=== PATIENT | male | born 1955 | race Caucasian/White ===

== ENCOUNTER 2020-01-09 17:42 | Emergency (ER) | payer BC ==
[~2020-01-09] VITALS: Ht 167.6 cm; Wt 81.7 kg
[~2020-01-09 17:42] MED LIST: AMIT25 PO; Cetirizine HCl10 MG PO; Flonase 0.05% N16 GM; GABA100 PO; HYDACE10B PO; KETO5OP BOTHEYES; LORA1 PO; NAPR500ERA PO; PIRO20 PO; VENL75ER PO; ZOLP5 PO
[2020-01-09 18:12] LABS: BASOPHILS ABSOLUTE AUTO 0.03 K/mm3 (0.00-0.23); BASOPHILS PERCENT AUTO 0 % (0-2); EOSINOPHILS ABSOLUTE AUTO 0.23 K/mm3 (0.00-0.68); EOSINOPHILS PERCENT AUTO 3 % (0-6); Hematocrit 45.6 % (37.0-53.0); Hemoglobin 14.7 g/dL (13.5-17.5); IMMATURE GRAN ABSOLUTE AUTO 0.02 K/mm3 (0.00-0.10); IMMATURE GRAN PERCENT AUTO 0 % (0-1); LYMPHOCYTES ABSOLUTE AUTO 1.43 K/mm3 (0.84-5.20); LYMPHOCYTES PERCENT AUTO 19 % (21-46); MONOCYTES ABSOLUTE AUTO 0.71 K/mm3 (0.16-1.47); MONOCYTES PERCENT AUTO 9 % (4-13); Mean Corpuscular HGB 29.2 pg (26.0-34.0); Mean Corpuscular HGB Conc 32.2 g/dL (31.5-36.5); Mean Corpuscular Volume 91 fL (80-100); Mean Platelet Volume 10.6 fL (9.1-12.4); NEUTROPHILS ABSOLUTE AUTO 5.23 K/mm3 (1.96-9.15); NEUTROPHILS PERCENT AUTO 68 % (41-73); Platelet Count 223 K/mm3 (150-400); RDW Coefficient Variation 13.1 % (11.7-14.2); Red Blood Cell Count 5.03 M/mm3 (4.30-5.90); White Blood Cell Count 7.65 K/mm3 (4.00-11.30)
[2020-01-09 18:30] LABS: Alanine Aminotransfer (ALT/SGP 28 U/L (12-78); Albumin, Blood 3.3 g/dL (3.4-5.0); Albumin/Globulin Ratio 1.1 (0.8-1.8); Alk Phos 78 U/L (50-136); Anion Gap 1 mmol/L (6-16); Aspartate Aminotrans (AST/SGOT 20 U/L (12-37); Bilirubin, Total 0.3 mg/dL (0.1-1.0); Blood Urea Nitrogen 12 mg/dL (8-24); Bun/Creatinine Ratio 12.6 (12.0-20.0); CO2, Blood 31 mmol/L (21-32); Calcium, Blood 8.7 mg/dL (8.5-10.1); Chloride, Blood 107 mmol/L (98-108); Creatinine, Blood 0.95 mg/dL (0.60-1.20); Globulin, Blood 3.1 g/dL (2.2-4.0); Glomerular Filtration Rate >60 (60-); Glucose, Blood 94 mg/dL (70-99); Potassium, Blood 4.3 mmol/L (3.5-5.5); Sodium, Blood 139 mmol/L (136-145); Total Protein, Blood 6.4 g/dL (6.4-8.2)
== END 2020-01-09 20:19 | disposition home or self-care (01) ==
LOC: ER 17:42
PROVIDERS: Emergency Medicine
DX: R79.9 Abnormal finding of blood chemistry, unspecified (principal); I10 Essential (primary) hypertension; K21.9 Gastro-esophageal reflux disease without esophagitis; Z79.899 Other long term (current) drug therapy; Z87.891 Personal history of nicotine dependence
CPT/HCPCS: 36415; 80053; 85025; 93005; 93010; 99284-25

== ENCOUNTER 2023-03-28 09:42 | Day surgery (SDC) | payer MEDICARE, BC ==
[~2023-03-28] VITALS: Ht 167.6 cm; Wt 87.5 kg
--- NOTE | 2023-03-28 10:41 | NUR ---
03/28/23 1041 iLlibeth Shen AT 1040 PLEDGET AT 1041
[2023-03-28 12:21] VITALS: BP 123/78
--- NOTE | 2023-03-28 12:42 | NUR ---
03/28/23 1242 Jacky Moreno IV REMOVED INTACT. SITE WNL.
== END 2023-03-28 12:30 | disposition home or self-care (01) ==
LOC: ORSCSDS 09:42
PROVIDERS: Student in an Organized Health Care Education/Training Program
PROC: 08RK3JZ Replacement of Left Lens with Synthetic Substitute, Percutaneous Approach (ICD-10-PCS; principal; 2023-03-28 11:00)
DX: H25.12 Age-related nuclear cataract, left eye (principal); Z96.1 Presence of intraocular lens; H52.202 Unspecified astigmatism, left eye; H21.81 Floppy iris syndrome; F17.220 Nicotine dependence, chewing tobacco, uncomplicated; F41.9 Anxiety disorder, unspecified; Z79.899 Other long term (current) drug therapy
CPT/HCPCS: J2250; J3010; J7040; V2632

== ENCOUNTER → 2023-04-08 | Outpatient (CLI) | payer MEDICARE, BC ==
[2023-04-08 13:01] LABS: BASOPHILS ABSOLUTE AUTO 0.04 K/mm3 (0.00-0.23); BASOPHILS PERCENT AUTO 0 % (0-2); EOSINOPHILS ABSOLUTE AUTO 0.01 K/mm3 (0.00-0.68); EOSINOPHILS PERCENT AUTO 0 % (0-6); Hematocrit 53.4 % (37.0-53.0); IMMATURE GRAN ABSOLUTE AUTO 0.08 K/mm3 (0.00-0.10); IMMATURE GRAN PERCENT AUTO 1 % (0-1); LYMPHOCYTES ABSOLUTE AUTO 0.59 K/mm3 (0.84-5.20); LYMPHOCYTES PERCENT AUTO 5 % (21-46); MONOCYTES ABSOLUTE AUTO 1.21 K/mm3 (0.16-1.47); MONOCYTES PERCENT AUTO 10 % (4-13); Mean Corpuscular HGB 31.1 pg (26.0-34.0); Mean Corpuscular HGB Conc 33.7 g/dL (31.5-36.5); Mean Corpuscular Volume 92 fL (80-100); Mean Platelet Volume 10.6 fL (9.1-12.4); NEUTROPHILS ABSOLUTE AUTO 9.75 K/mm3 (1.96-9.15); NEUTROPHILS PERCENT AUTO 83 % (41-73); Platelet Count 179 K/mm3 (150-400); RDW Coefficient Variation 13.2 % (11.7-14.2); RDW Standard Deviation 44.8 fL (35.1-46.3); Red Blood Cell Count 5.78 M/mm3 (4.30-5.90); White Blood Cell Count 11.68 K/mm3 (4.00-11.30)
[2023-04-08 13:09] LABS: Albumin, Blood 2.6 g/dL (3.4-5.0); Albumin/Globulin Ratio 0.7 (0.8-1.8); Bilirubin, Total 0.6 mg/dL (0.1-1.0); Bun/Creatinine Ratio 12.8 (12.0-20.0); Calcium, Blood 8.3 mg/dL (8.5-10.1); Creatinine, Blood 1.41 mg/dL (0.60-1.20); Globulin, Blood 3.5 g/dL (2.2-4.0); Total Protein, Blood 6.1 g/dL (6.4-8.2)
== END | disposition home or self-care (01) ==
LOC: LAB SHORT 12:54 → LAB 12:54
PROVIDERS: Physician Assistant
DX: R06.00 Dyspnea, unspecified (principal)
CPT/HCPCS: 80053; 84484; 85025

== ENCOUNTER 2023-04-18 13:37 | Inpatient (IN) | payer OTHER, MEDICARE, BC ==
[~2023-04-18] VITALS: Ht 167.6 cm; Wt 78.8 kg
[2023-04-18 14:48] LABS: BASOPHILS ABSOLUTE AUTO 0.03 K/mm3 (0.00-0.23); BASOPHILS PERCENT AUTO 0 % (0-2); EOSINOPHILS ABSOLUTE AUTO 0.03 K/mm3 (0.00-0.68); EOSINOPHILS PERCENT AUTO 0 % (0-6); Hematocrit 41.8 % (37.0-53.0); Hemoglobin 14.2 g/dL (13.5-17.5); IMMATURE GRAN ABSOLUTE AUTO 0.23 K/mm3 (0.00-0.10); IMMATURE GRAN PERCENT AUTO 2 % (0-1); LYMPHOCYTES ABSOLUTE AUTO 0.36 K/mm3 (0.84-5.20); LYMPHOCYTES PERCENT AUTO 2 % (21-46); MONOCYTES ABSOLUTE AUTO 0.57 K/mm3 (0.16-1.47); MONOCYTES PERCENT AUTO 4 % (4-13); Mean Corpuscular HGB 30.5 pg (26.0-34.0); Mean Corpuscular Volume 90 fL (80-100); Mean Platelet Volume 9.9 fL (9.1-12.4); NEUTROPHILS ABSOLUTE AUTO 13.49 K/mm3 (1.96-9.15); NEUTROPHILS PERCENT AUTO 92 % (41-73); Platelet Count 200 K/mm3 (150-400); RDW Coefficient Variation 13.5 % (11.7-14.2); RDW Standard Deviation 44.8 fL (35.1-46.3); Red Blood Cell Count 4.65 M/mm3 (4.30-5.90); White Blood Cell Count 14.71 K/mm3 (4.00-11.30)
[2023-04-18 15:09] LABS: Albumin/Globulin Ratio 0.6 (0.8-1.8); Bilirubin, Total 0.8 mg/dL (0.1-1.0); Bun/Creatinine Ratio 16.4 (12.0-20.0); Creatinine, Blood 0.98 mg/dL (0.60-1.20); Globulin, Blood 3.4 g/dL (2.2-4.0); Potassium, Blood 4.2 mmol/L (3.5-5.5); Total Protein, Blood 5.4 g/dL (6.4-8.2)
[2023-04-18 15:25] LABS: Influenza A, PCR NEGATIVE (NEGATIVE); Influenza B, PCR NEGATIVE (NEGATIVE); Resp Syncytial Virus, PCR NEGATIVE (NEGATIVE)
[2023-04-18 15:26] LABS: SARS-Cov-2 (COVID-19) PCR, MMC POSITIVE (NEGATIVE)
[2023-04-18 15:45] LABS: PCO2 Arterial 33.8 mmHg (35-45); PO2 Arterial 68.5 mmHg (80-100); pH Blood Arterial 7.49 (7.35-7.45)
[2023-04-18 18:10] VITALS: BP 106/62
[2023-04-18] MEDS ORDERED: ZOLP12.5 PO (18:15)
[2023-04-18] MEDS ORDERED: MYCO250 PO (18:28)
[2023-04-18] MEDS ORDERED: Rituxan10 MG/ML IV (18:30)
[2023-04-18 19:59] VITALS: BP 112/72
--- NOTE | 2023-04-18 20:19 | NUR ---
PT ADMITTED TO ROOM 302 FROM ED AT 1804. PT ON 5L NC, SATS 98% USING EAR PROBE. TURNED O2 DOWN TO 3L, SATS 95%. CONNECTED TO CONT PULSE IN ROOM. SET UP IVF NS AT 50. ORIENTED TO ROOM AND SAFETY. PT IS VERY DYSPNIC WITH MIN ACTIVITY, EVEN MOVING SELF UP IN THE BED VERY EXHAUSTING. OBTAINED HX AND DID PHYSICAL ASSESSMENT. WILL REPORT TO JASWINDER APARICIO.
[2023-04-18] MEDS ORDERED: VITAMIN D5000 UNIT PO (20:43)
[2023-04-18] MEDS ORDERED: QUERCETIN COMP1 EACH PO (20:45)
[2023-04-18] MEDS ORDERED: OMEP20ER PO (20:46)
--- NOTE | 2023-04-18 20:47 | NUR ---
PT AND FAMILY REQUESTING TO HAVE REMDESIVIR DC'D- DON'T WISH TO TAKE THIS MED
[2023-04-19 02:58] VITALS: BP 94/80
[2023-04-19 04:55] LABS: BASOPHILS ABSOLUTE AUTO 0.02 K/mm3 (0.00-0.23); BASOPHILS PERCENT AUTO 0 % (0-2); EOSINOPHILS PERCENT AUTO 0 % (0-6); Hematocrit 38.4 % (37.0-53.0); Hemoglobin 12.7 g/dL (13.5-17.5); IMMATURE GRAN ABSOLUTE AUTO 0.12 K/mm3 (0.00-0.10); IMMATURE GRAN PERCENT AUTO 1 % (0-1); LYMPHOCYTES ABSOLUTE AUTO 0.22 K/mm3 (0.84-5.20); LYMPHOCYTES PERCENT AUTO 2 % (21-46); MONOCYTES ABSOLUTE AUTO 0.34 K/mm3 (0.16-1.47); MONOCYTES PERCENT AUTO 3 % (4-13); Mean Corpuscular HGB Conc 33.1 g/dL (31.5-36.5); Mean Corpuscular Volume 91 fL (80-100); NEUTROPHILS PERCENT AUTO 94 % (41-73); Platelet Count 183 K/mm3 (150-400); RDW Coefficient Variation 13.4 % (11.7-14.2); RDW Standard Deviation 45.1 fL (35.1-46.3); Red Blood Cell Count 4.24 M/mm3 (4.30-5.90)
[2023-04-19 05:16] LABS: Bun/Creatinine Ratio 17.3 (12.0-20.0); Calcium, Blood 7.6 mg/dL (8.5-10.1); Creatinine, Blood 0.87 mg/dL (0.60-1.20); Potassium, Blood 4.5 mmol/L (3.5-5.5)
--- NOTE | 2023-04-19 06:11 | NUR ---
SHIFT SUMMARY NO C/O PAIN. PT ON 5L NC AND CONTINUOUS SPO2, SOB WITH VERY MINIMAL EXERTION. PER SHIFT REPORT PT AND SIGNIFICANT OTHER REQUESTING HIS OMEPRAZOLE BE ORDERED AND THAT REMDESEVIR IS DISCONTINUED HE WILL NOT TAKE IT. REMDESEVIR IS NOT ON THE OCT, NOTIFIED DON HUYNH TO OBTAIN OMEPRAZOLE ORDER. PT VERY WEAK. PRN AMBIEN GIVEN PER PT REQUEST. FIRE SAFETY REVIEWED. NO IGNITION SOURCES FOUND.
[2023-04-19 07:33] VITALS: BP 112/72
--- NOTE | 2023-04-19 15:03 | NUR ---
Patient is sitting up in bed and alert. Patient has his SO Wilda bedside. THey tell me about the family unit complications, their careers and their hopes going forward. I normalized his experience, reinforced helpful attitudes and perspectives and provided therapeutic listening and a calming presence. Patient seems encouraged by the conversation and shows signs of an elevated mood.
[2023-04-19 15:34] VITALS: BP 123/69
--- NOTE | 2023-04-19 17:42 | NUR ---
SHIFT SUMMARY- PT IS A/O, PLESANT AND COOPERATIVE. HE IS EATING AND DRINKING WELL. WAS AT BEDSIDE THIS SHIFT. HE IS REFUSING REMDISIVER. AMBULATED TO THE RESTROOM. PT DESATURATES WITH EXERTION. BUT RECOVERS ONCES HE TAKES DEEP BREATHS. HAD A BM THIS SHIFT. HIS BED IS IN THE LOW POSITION AND CALL LIGHT IS WITHIN REACH.
[2023-04-19 20:17] VITALS: BP 134/86
[2023-04-20] VITALS (8 sets, daily range): BP systolic 99–152; BP diastolic 74–88
--- NOTE | 2023-04-20 05:25 | NUR ---
TRANSFER/SUMMARY PT TRANSFERRED FROM [place] [id number] TO [facility] @0500 VIA BED. PT ALERT AND ORIENTED X4, ABLE TO FOLLOW COMMANDS AND MAKE NEEDS KNOWN. BP STABLE, HR SR 70'S, AFEBRILE. PT CURRENTLY ON BIPAP SETTINGS 07/08 100%. RESPIRATIONS 25-30. COVID POSITIVE, ON AIRBORNE ISOLATION. LUNG SOUNDS DIM THROUGHOUT. PULSES STRONG. PT CONT OF URINE, INC OF BOWEL. NS GTT IN R AC. PT REQUEST TO NOT CALL AND MAKE AWARE OF TRANSFER. PT ORIENTED TO ROOM AND CALL LIGHT SYSTEM. BED IN LOW, CALL LIGHT IN REACH, WILL REPORT TO ONCOMING RN.
--- NOTE | 2023-04-20 05:26 | NUR ---
PT TRANSFERED TO PCU @ 0515 THIS SHIFT. PT WAS DESATING ON 7 L O2 SO IT WAS BUMPED UP TO 14 BY RT. PT CONTINUED TO STRUGGLE MAINTAINING SATS SO ORDER FOR BIPAP/CPAP PROTOCOL WAS OBTAINED. PT CONTINUED TO DESAT INTO LOW 80'S/HIGH 70'S WHILE ON BIPAP. RT AND CHARGE NURSE NOTIFIED AND HOSPITALIST WAS CONSULTED. DECISION WAS MADE TO TRANSFER PT TO PCU. REPORT GIVEN TO ALESSANDRA HURD.
[2023-04-20 07:04] LABS: BASOPHILS ABSOLUTE AUTO 0.02 K/mm3 (0.00-0.23); BASOPHILS PERCENT AUTO 0 % (0-2); EOSINOPHILS PERCENT AUTO 0 % (0-6); Hematocrit 38.5 % (37.0-53.0); Hemoglobin 13.1 g/dL (13.5-17.5); IMMATURE GRAN PERCENT AUTO 2 % (0-1); LYMPHOCYTES ABSOLUTE AUTO 0.41 K/mm3 (0.84-5.20); LYMPHOCYTES PERCENT AUTO 2 % (21-46); MONOCYTES ABSOLUTE AUTO 0.94 K/mm3 (0.16-1.47); MONOCYTES PERCENT AUTO 5 % (4-13); Mean Corpuscular HGB 30.5 pg (26.0-34.0); Mean Corpuscular Volume 90 fL (80-100); NEUTROPHILS ABSOLUTE AUTO 15.71 K/mm3 (1.96-9.15); NEUTROPHILS PERCENT AUTO 90 % (41-73); Platelet Count 212 K/mm3 (150-400); RDW Coefficient Variation 13.6 % (11.7-14.2); RDW Standard Deviation 44.6 fL (35.1-46.3); Red Blood Cell Count 4.29 M/mm3 (4.30-5.90); White Blood Cell Count 17.38 K/mm3 (4.00-11.30)
[2023-04-20 07:27] LABS: Albumin, Blood 1.9 g/dL (3.4-5.0); Anion Gap 6 mmol/L (6-16); Blood Urea Nitrogen 16 mg/dL (8-24); Bun/Creatinine Ratio 20.5 (12.0-20.0); CO2, Blood 24 mmol/L (21-32); Calcium, Blood 8.2 mg/dL (8.5-10.1); Chloride, Blood 105 mmol/L (98-108); Creatinine, Blood 0.78 mg/dL (0.60-1.20); Glomerular Filtration Rate 98 (60-); Glucose, Blood 148 mg/dL (70-99); Phosphorus, Blood 3.3 mg/dL (2.5-4.9); Potassium, Blood 4.2 mmol/L (3.5-5.5); Sodium, Blood 135 mmol/L (136-145)
--- NOTE | 2023-04-20 14:12 | NUR ---
AROUND 1200 PT WAS SWITCHED FROM BIPAP TO AIRVO 60L 70%, PT TOLERATED WELL O2 SATURATION ABOVE 95%. RT TITRATED PT TO FIO2 50% WHICH IS PT'S CURRENT SETTING, PT TOLERATING WELL, O2 SATURATION ABOVE 95%.
--- NOTE | 2023-04-20 16:18 | NUR ---
1400 PT WAS UP TO BEDSIDE COMMODE AND HAD SMALL BM, PT TOLERATED WELL. O2 SATURATION WENT DOWN O HIGH 80'S WHILE TALKING, FIO2 TITRATED UP TO 60% PT WAS EXPECTING DAUGHTER SOON AND EXPECTED TO BE TALKING MORE. PT ATE HALF OF A HAMBURGER THAT BROUGHT IN. PT IN BED RESTING WITH AT BEDSIDE. CALL LIGHT WITHIN REACH.
--- NOTE | 2023-04-20 16:40 | NUR ---
FI02 TITRATED BACK DOWN TO 50%, PT TOLERATING WELL, O2 SATURATION ABOVE 93%. PT'S STEPPED OUT OF THE ROOM FOR A BIT. PT RESTING IN BED. CALL LIGHT WITHIN REACH.
--- NOTE | 2023-04-20 17:19 | NUR ---
PT A&OX4, ABLE TO MAKE NEEDS KNOWN. PT STILL ON AIRVO 50% FIO2, OXYGEN SATURATION DROPPED TO 80'S W/EXERTION, HAD TO INCREASE FIO2 PERIODICALLY TO BRING SATS BACK TO 90'S, THEN FI02 TITRATED BACK TO CURRENT SETTINGS. PT DENIES CHEST PAIN/PRESSURE. LUNG SOUNDS CLEAR/DIMINISHED THROUGHOUT. PT AMBULATED TO BEDSIDE COMMODE MULTIPLE TIMES, WITH ASSISTANCE FROM FAMILY MEMBER, TOLERATED FAIRLY. PT HAD SMALL BOWEL MOVEMENT. PT ABLE TO TURN HIMSELF IN BED. PT ATE HALF OF A HAMBURGER THAT HIS BROUGHT IN. PT CONTINUES TO REFUSE REMDESIVIR, IS AWARE. PT RESTING IN BED WITH FAMILY MEMBER AT BEDSIDE. CALL LIGHT WITHIN REACH.
[2023-04-21 04:44] VITALS: BP 133/74
--- NOTE | 2023-04-21 06:40 | NUR ---
SHIFT SUMMARY PATIENT ALERT AND ORIENTED X4, PATIENT WEAK AND CURRENTLY BEDREST. PATIENT MEDICATED PER EMAR FOR PAIN. PATIENT CONTINUES ON HIGH FLOW OXYGEN, CURRENTLY AT 60 LITERS O2 WITH 60% FIO2. VITAL SIGNS STABLE. NO ACUTE ISSUES NOTED OVERNIGHT. WILL CONTINUE TO MONITOR. CALL LIGHT WITHIN REACH.
[2023-04-21 07:56] VITALS: BP 142/81
[2023-04-21 12:13] VITALS: BP 134/73
--- NOTE | 2023-04-21 17:43 | NUR ---
SHIFT SUMMARY PATIENT DESATTED TO HIGH 70'S AT LOWEST WITH EXERTION. ARIVO SETTINGS 60L 50% FIO2 WITH SPO2 IN MID 90'S AT REST. 2 BM THIS SHIFT. MEDICATED WITH TYLENOL PER EMAR X 1 FOR BACK PAIN. OT EVALUATED PATIENT THIS SHIFT, BUT WAS UNABLE TO CONTINUE DUE TO O2 DESATURATION. PATIENT UP IN CHAIR FOR OVER HALF THE SHIFT. NO OTHER CHANGES DURING SHIFT.
[2023-04-21 21:09] VITALS: BP 140/91
[2023-04-22 00:15] VITALS: BP 147/92
[2023-04-22 03:35] VITALS: BP 136/90
[2023-04-22 04:39] LABS: Albumin/Globulin Ratio 0.6 (0.8-1.8); Bilirubin, Total 0.6 mg/dL (0.1-1.0); Bun/Creatinine Ratio 20.5 (12.0-20.0); Calcium, Blood 8.2 mg/dL (8.5-10.1); Creatinine, Blood 0.78 mg/dL (0.60-1.20); Globulin, Blood 3.5 g/dL (2.2-4.0); Potassium, Blood 4.2 mmol/L (3.5-5.5); Total Protein, Blood 5.5 g/dL (6.4-8.2)
--- NOTE | 2023-04-22 06:20 | NUR ---
SHIFT SUMMARY PATIENT ALERT AND ORIENTED X4. 1 ASSIST TO GET UP TO THE CHAIR/BEDSIDE COMMODE. PATIENT TACHYPNIC AND BECOMES SHORT OF BREATH EASILY WITH ACTIVITY, CONTINUES ON AIRVO, CURRENT SETTINGS 60L 55% FIO2. VITAL SIGNS STABLE. NO ACUTE ISSUES NOTED OVERNIGHT. WILL CONTINUE TO MONITOR. CALL LIGHT WITHIN REACH.
[2023-04-22 07:37] VITALS: BP 163/90
[2023-04-22 10:59] VITALS: BP 138/98
[2023-04-22 15:36] VITALS: BP 119/67
--- NOTE | 2023-04-22 17:24 | NUR ---
SHIFT SUMMARY NO ACUTE CHANGES THIS SHIFT. PT A&OX4, ABLE TO MAKE NEEDS KNOWN. TEMP SLIGHTLY ELEVATED AT START OF SHIFT, RECOVERED BY END OF SHIFT. SP02>90% ON AIRVO, 60L, 55%. PT DESATS TO MID 70'S W/ ANY EXERTION. USED FLUTTER VALVE. PRODUCTIVE HARSH COUGH, SELF SUCTIONS SECRETIONS. TELEMETRY SHOWS NSR/SINUS TACH, HR 80'S-100'S. DENIES PAIN. NO APPETITE, BARELY TOUCHED MEALS. WORKED W/ PT TODAY, SAT ON SIDE OF BED, WAS ABLE TO DO LEG EXERCISES PER REPORT. CURRENTLY UP IN CHAIR. MULTIPLE FAMILY IN ROOM. CALL LIGHT IN REACH.
[2023-04-22 19:57] VITALS: BP 126/77
[2023-04-23 00:27] VITALS: BP 133/79
[2023-04-23 04:23] VITALS: BP 132/83
--- NOTE | 2023-04-23 05:35 | NUR ---
SHIFT SUMMARY PT ALERT AND ORIENTED X 4. HR STABLE. BP STABLE. OXYGEN SATURATION MAINTAINED ABOVE 92% ON 60L AND 50% FIO2 ON AIRVO. PT LAID PRONE AT BEGINNING OF SHIFT FOR ONE HOUR. PT REFUSING TURNS AT TIMES T/O SHIFT, REQUESTING TO SLEEP. HAS TREMOR BUT STATES HE HAS IT AT BASELINE. NO CP OR PRESSURE REPORTED. PT ABLE TO USE URINAL IN BED. CALL LIGHT WITHIN REACH. WILL CONT TO MONITOR UNTIL REPORT GIVEN TO DAYSHIFT RN.
[2023-04-23 08:37] VITALS: BP 149/107
[2023-04-23 12:53] VITALS: BP 120/81
[2023-04-23 17:15] VITALS: BP 111/73
--- NOTE | 2023-04-23 17:30 | NUR ---
SHIFT SUMMARY PT A&OX4. PT ORAL TEMP WNL, HOWEVER SKIN HOT/CLAMMY. TYLENOL GIVEN PER EMAR X1, W/ RELIEF. SP02>90% ON AIRVO, CURRENTLY AT 60L 90% FI02. PT TACHYPENIC MOST OF SHIFT, HAS SETTLED DOWN TOWARDS END OF SHIFT, RR CURRENTLY IN 20'S. DESATS W/ ANY ACTIVITY. PRODUCTIVE COUGH, SELF SUCTIONS. TELEMETRY SHOWS NSR, HR 70'S-110'S THIS SHIFT. DENIES PAIN. PT SOB WHEN USING URINAL AFTER LASIX GIVEN THIS AM. CONDOM CATH APPLIED, DRAINING TO GRAVITY. POWER GLIDE PLACED SANTIAGO. ABX INFUSED PER EMAR. SIG OTHER/DAUGHTERS IN ROOM THIS SHIFT. NOTARY IN ROOM THIS AFTERNOON W/ FAMLIY TO SIGN DOCUMENTS. CALL LIGHT IN REACH. PT EATING DINNER CURRENTLY W/ HELP OF SPOUSE.
[2023-04-23 19:59] VITALS: BP 110/62
[2023-04-24] VITALS (45 sets, daily range): BP systolic 81–174; BP diastolic 56–100
[2023-04-24 05:03] LABS: Hematocrit 38.2 % (37.0-53.0); Hemoglobin 12.9 g/dL (13.5-17.5); Mean Corpuscular HGB 30.1 pg (26.0-34.0); Mean Corpuscular HGB Conc 33.8 g/dL (31.5-36.5); Mean Corpuscular Volume 89 fL (80-100); Mean Platelet Volume 9.8 fL (9.1-12.4); Platelet Count 209 K/mm3 (150-400); RDW Coefficient Variation 13.4 % (11.7-14.2); RDW Standard Deviation 43.8 fL (35.1-46.3); Red Blood Cell Count 4.29 M/mm3 (4.30-5.90)
[2023-04-24 05:40] LABS: Bun/Creatinine Ratio 23.8 (12.0-20.0); Calcium, Blood 8.2 mg/dL (8.5-10.1); Creatinine, Blood 0.76 mg/dL (0.60-1.20); Potassium, Blood 4.3 mmol/L (3.5-5.5)
[2023-04-24 07:17] LABS: PCO2 Arterial 43.7 mmHg (35-45); PO2 Arterial 60.8 mmHg (80-100); pH Blood Arterial 7.41 (7.35-7.45)
--- NOTE | 2023-04-24 07:20 | NUR ---
CARE ASSUMPTION PT ARRIVED TO ICU 12 FROM PCU. PT ARRIVED ON BIPAP W RT AT BEDSIDE. PT IS CONFUSED AND NOT BREDIRECTABLE. PT PULLING BIPAP MASK AND TELEMETRY LEADS OFF. MONITOPR SHOWING ST 1340'S ON ARRIVAL. RR 44-50. BP WNL. PT HAD INCONTINENT BM ON ARRIVAL. TEMP BURKS PLACED PER ORDER, PT FEBRILE W PEAK TEMP 102.9, ICE PACKS AND COOL WASH CLOTHS PLACED ON PT WELL A FAN PROVIDED. PT'S CONTACTED BY PCU OPEN DIE INSPECTOR AND GIVEN AN UPDATE ON THE PT'S CONDITION AND LOCATION. PT'S CODE STATUS CHANGED TO FULL CODE PER THE PT'S WISHES, PT'S UPDATED ON CODE STATUS AND DOES NOT DISAGREE WITH THE PT'S DECESION.
--- NOTE | 2023-04-24 07:57 | NUR ---
SHIFT SUMMARY/TRANSFER TO ICU NOTE A/Ox4 AND COOPERATIVE WITH CARE. ANSWERS QUESTIONS APPROPRIATELY AND ABLE TO MAKE HIS NEED KNOWN. CARDIAC SR-ST 80-100'S WITH NO C/O CP OR PRESSURE T/O THE NIGHT. SBP REMAINED STABLE RANGING 100-130'S. RESPIRATORY, MAINTAINED SPO2 >90% ON AIRVO 60L W/ 75% FIO2. DENIES SOB AT REST, BUT DYSPNEA WITH TACHYPNEA NOTED WITH MINIMAL EXERTION. GI/, ABLE TO ALERT STAFF WITH BOWEL NEEDS, HAS A HARD TIME TOLERATING THE BED ESPANA. CONDOM CATH WAS ON MOST OF THE NIGHT UNTIL BEING DISLODGED EARLY THIS AM. ASSESSED PT FOR RISKS OF ANY IGNITION SOURCES WELL BEHAVIORS FOR INCREASED RISKS OF FIRE DANGER. PT EDUCATED ON COMMON SOURCES OF IGNITION WELL NEED TO KEEP A SAFE ENVIRONMENT. PT VOICED UNDERSTANDING. ICU TRANSFER NOTE AT ~0500 THIS AM, AFTER CHANGING PT/LINENS DUE TO INCONTINENT VOID, PT REQUESTED SMALL DRINK OF WATER. HOB INCREASED TO 90 DEGREES AND PT REMINDED TO TAKE SMALL SIPS. WHEN PT ATTEMPTED TO DRINK WATER PT STARTING CHOKING AND COULD NOT SAFELY SWALLOW THE LIQUID. THIS RN REMOVED WATER FROM PT AND ENCOURAGED DEEP COUGHING WELL ASSISTED WITH SUCTION. THICK WHITE SPUTUM REMOVED WITH SUCTION, BUT THIS RN NOTED PT WAS HAVING A HARDER TIME MAINTAINING SPO2 SATS >88%. FINE CRAKLES NOTED IN BASES WITH AUDIBLE WHEEZING IN UPPER LOBES. RT ANDRIA OROSCO NOTIFED AND TO ROOM WITH PT BEING PLACED ON BiPAP 12/10 90% FIO2. PT TOLERATED BiPAP FOR SOMETIME WITH SPO2 MAINTAINING >94%, BUT RR NOTED TO BE AVERAGING 40-50'S AND HR TRENDING 110-130'S. PT STATED TO THIS RN HE WAS FEELING ANXIOUS AND "THE CHOKING ON THE WATER SCARED ME". DR. RIOS NOTIFIED OF PT'S CHANGE IN CONDITION WITH 1MG ATIVAN ORDERED TO BE GIVEN PER EMAR. PT CONTINUED TO MAINTAIN RR 40-50'S. DR. ROPER CONTACTED WITH ANOTHER 1MG OF ATIVAN TO BE GIVEN PER EMAR WELL ABG DRAW. DR. ROPER ARRIVED AT BEDSIDE TO ASSESS PT. NEW ORDERS WERE GIVEN FOR PT TO BE TRANSFERED ICU AND PLACED ON PRECEDEX. GAVE REPORT TO LIBRARY SERIALS ASSISTANT MURRAY [place]TH WITH ALL QUESTIONS ANSWERED. PT SHORTLY TRANSFERED TO ICU 12 ~0700 THIS AM. UPDATE GIVEN TO PT'S SPOUSE WHO STATED "I WILL UPDATE HIS DAUGHTERS". ALL FAMILY MEMBERS QUESTIONS WERE ANSWERED.
[2023-04-24 08:18] LABS: Source, Urine Foley catheter
[2023-04-24 08:20] LABS: Appearance, Urine Clear (Clear); Bilirubin, Urine Neg (Neg); Blood, Urine 1+ (Neg); Color, Urine Yellow (P-Yellow); Glucose Qualitative, Urine Neg (Neg); Ketones, Urine 3+ (Neg); Leukocyte Esterase, Urine Neg (Neg); Nitrite, Urine Neg (Neg); Protein, Urine 2+ (Neg); Specific Gravity, Urine 1.015 (1.003-1.022); Urobilinogen, Urine NORM (Normal)
[2023-04-24 08:26] LABS: Bacteria Rare /hpf; Squamous Epithelial Cells Not Seen /hpf (Few)
[2023-04-24 08:27] LABS: Amorphous Light (0-Heavy)
--- NOTE | 2023-04-24 11:06 | NUR ---
CBG-25 THIS RN HAD CONCERNS THAT THE PT HAD LOW BLOOD GLUOSE HIS AM LABS SHOWED A SIGNIFICANT DROP IN HIS BLOOD GLUCOSE. POC GLUCOSE CHECK SHOWED A CBG OF 25. 1 AMP OF D50 GIVEN AND THE PT IMMEDIATELY BECAME ALERT AND SPO2 WENT FROM 93 TO 100%. DR. DURAND NOTIFIED AND ORDER FOR D10 GTT ORDERED.
[2023-04-24 14:51] LABS: Glucose, Blood 232 mg/dL (70-99)
--- NOTE | 2023-04-24 17:32 | NUR ---
DAY SHIFT SUMMARY PT BEGAN SHIFT VERY CONFUSED AND AGITATED PULLING AT BIPAP MASK AND MONITOR CORDS. PT PLACED ON PRECEDEX TO HELP WITH HIS COMFORT WEARING THE BIPAP MASK. PT HAD TEMP BURKS PLACED SHOWING A CORE TEMP OF 102.9. ICE PACKS PLACED IN ARMPIT AND GROIN OF THE PT BRING HIS TEMP DOWN TO 99.8 REMAINING STABLE THE REST OF THE SHIFT. THIS RN DID POC CBG SHOWING A BLOOD GLUCOSE OF 25. BLOOD PT RECIEVED 2 AMPS OF D50 AFTER REPEAT CBG'S SHOWED A BLOOD GLUCOSE OF <55. PT PLACED ON A D10 GTT PER DR. DURAND. SOME DISCREPANCIES WERE FOUND BETWEEN CAPILLARY CBG'S AND VENOUS BLOOD GLUCOSE DUE TO THE PT'S RAYNAUDS SYNDROME SO BLOOD SUGARS HAVE BEEN CHECKED BY VENOUS DRAWS ONLY. PT'S MENTATION BACK TO BASELINE AFTER HIS GLUCOSE WAS STABALIZED AND HIS TEMP WENT DOWN AND THE PRECEDEX WAS TURNED OFF EARLY IN THE SHIFT. MONITOR SHOWED ST 130'S WHEN THE PT ARRIVED TO ICU THIS AM BUT HAS BEEN SR 60'S-70'S FOR MOST OF THE DAY. BP HAS BEEN SOFT BUT VERY STABLE THIS SHIFT. PT PRONED THIS SHIFT BUT TURNS HIMSELF ONTO HIS SIDE. FAMILY AT BEDSIDE THROUGHOUT THE SHIFT. PT WAS CHANGED TO FULL CODE THIS AM PER PT AND FAMILY REQUEST. PT HAD 1100 CLEAR KARAN URINE IN HIS BURKS THIS SHIFT. PT HAD 1 LIQUID BM THIS SHIFT. WILL REPORT TO ONCOMING RN.
--- NOTE | 2023-04-24 21:24 | NUR ---
ASSUMED CARE OF PT AT 1915 BEDSIDE REPORT RECEIVED FROM ALESSANDRA GAO. PT IS A/O, ON BIPAP 07/30 FI02 80%. LUNGS WITH WHEEZING BILATERALLY. SR 70-80'S. SBP 105-110. NPO DUE TO BIPAP DEPENDENCE. LOOSE BM AT BEGINNING OF SHIFT, PT REPORTELY HAD LOOSE BM'S X2 ON DAY SHIFT. TEMP PROBE BURKS IN PLACE. TEMP 100.6, PT SHIVERING SO NO ICE PACKS PLACED. REMOVED BLANKETS AND LEFT SHEET IN PLACE. UO WNL. SKIN INTACT. BRIEF IN PLACE DUE TO LOOSE STOOLS. REPOSITIONING DONE EVERY 2 HOURS, PT IS NOT PRONING BUT TURNING FAR TO EACH SIDE POSSIBLE WITHOUT BEING PRONE. PG TO RIGHT UPPER ARM, POSITIONAL, SL. PIV TO LEFT FA, D10 AND NS TKO INFUSING. CBG ORDERED EVERY 4 HOURS WHILE ON D10. CONTACTED DR. DURAND AT 2030 REGARDING 3RD LOOSE STOOL AND TEMP, ORDERS RECEIVED TO SEND STOOL FOR CDIFF AND TYLENOL ME FOR TEMP. STOOL COLLECTED AND SENT ORDERED, APAP GIVEN ME FOR TEMP.
[2023-04-25] VITALS (22 sets, daily range): BP systolic 101–130; BP diastolic 40–85
[2023-04-25 00:01] LABS: C DIFFICILE DNA NEGATIVE (Negative)
[2023-04-25 00:15] LABS: Vancomycin, Trough 11.6 ug/mL (5.0-10.0)
[2023-04-25 04:11] LABS: BASOPHILS ABSOLUTE AUTO 0.02 K/mm3 (0.00-0.23); BASOPHILS PERCENT AUTO 0 % (0-2); EOSINOPHILS ABSOLUTE AUTO 0.01 K/mm3 (0.00-0.68); EOSINOPHILS PERCENT AUTO 0 % (0-6); Hematocrit 38.2 % (37.0-53.0); Hemoglobin 12.6 g/dL (13.5-17.5); IMMATURE GRAN PERCENT AUTO 2 % (0-1); LYMPHOCYTES ABSOLUTE AUTO 0.29 K/mm3 (0.84-5.20); LYMPHOCYTES PERCENT AUTO 2 % (21-46); MONOCYTES PERCENT AUTO 2 % (4-13); Mean Corpuscular HGB 29.9 pg (26.0-34.0); Mean Corpuscular Volume 91 fL (80-100); NEUTROPHILS ABSOLUTE AUTO 12.67 K/mm3 (1.96-9.15); NEUTROPHILS PERCENT AUTO 94 % (41-73); Platelet Count 209 K/mm3 (150-400); RDW Coefficient Variation 13.3 % (11.7-14.2); Red Blood Cell Count 4.21 M/mm3 (4.30-5.90); White Blood Cell Count 13.49 K/mm3 (4.00-11.30)
[2023-04-25 05:26] LABS: Magnesium, Blood 2.2 mg/dL (1.6-2.4)
[2023-04-25 05:49] LABS: Albumin, Blood 1.8 g/dL (3.4-5.0); Albumin/Globulin Ratio 0.6 (0.8-1.8); Bilirubin, Total 0.6 mg/dL (0.1-1.0); Bun/Creatinine Ratio 20.8 (12.0-20.0); Calcium, Blood 8.2 mg/dL (8.5-10.1); Creatinine, Blood 0.77 mg/dL (0.60-1.20); Phosphorus, Blood 2.4 mg/dL (2.5-4.9); Potassium, Blood 4.2 mmol/L (3.5-5.5); Total Protein, Blood 4.8 g/dL (6.4-8.2)
--- NOTE | 2023-04-25 06:26 | NUR ---
END OF SHIFT SUMMARY PT REMAINS A/O, SLEPT OFF AND ON. HAS RIGORS WITH TEMP, HELPED WITH TYLENOL CT ORIGINALLY BUT THE SECOND DOSE OF TYLENOL DID NOT RELIEVE TEMP. PT DID STATE HE WAS SHAKING LESS AFTER MEDICATION. CALL PLACED TO DR. ROPER, ORDER RECEIVED FOR ADDITIONAL DOSE OF TYLENOL CT, ONE DOSE OF ASPIRIN CT AND BC X2. TMAX 102.0. SR, BP WNL. LUNGS WITH WHEEZING THROUGHOUT. CXR DONE THIS AM. RESP TX DONE BY RT. BIPAP SETTINGS 12/10, FIO2 TITRATED UP TO 85%. NPO DUE TO BIPAP DEPENDENCE. DENIES NAUSEA, STOOL SENT FOR CDIFF, NEGATIVE RESULT. TEMP PROBE BUKRS IN PLACE, DRAINING CLEAR KARAN URINE. SKIN HOT TO TOUCH, DRY, NO BREAKDOWN RELATED TO PRESSURE NOTED. PIV X1 LEFT FOREARM, PG TO RIGHT UPPER ARM, POSITIONAL BUT DRAWS AND FLUSHSES WELL WHEN ARM EXTENDED. D10 @ 50ML/HR CONTINUED, NS TKO WITH IVPB (MAXIPIME AND VANCO). NO FAMILY AT BEDSIDE THROUGHOUT SHIFT. UPDATED PT APPROPRIATE.
--- NOTE | 2023-04-25 07:00 | NUR ---
ASSUMPTION OF CARE PT RECEIVING D10 50ML/HR. PT WAKENS EASILY TO VERBAL STIMULI. BIPAP 14/10 WITH FIO2 85%. LUNGS DIMINISHED THROUGHOUT. CORE TEMP 102.4. BURKS PATENT AND DRAINING TO GRAVITY. SEE SHIFT ASSESSMENT.
--- NOTE | 2023-04-25 11:13 | NUR ---
GLUCOSE AM GLUCOSE 77. RECHECKED AFTER 2HRS WHICH READ 50. SUSPICION FOR INADEQUATE VENOUS SAMPLE. RECHECKED AND GLUCOSE WAS 108. D10 CONTINUING TO INFUSE.
--- NOTE | 2023-04-25 14:12 | NUR ---
CODE STATUS PT AND SPOUSE DISCUSSING CODE STATUS. PT REPORTS NOT WANTING TO BE INTUBATED. ASKED PT IF HIS HEART WAS TO STOP, WOULD HE WANT CPR TO WHICH HE REPLIED NO. PT ALERT AND ORIENTED. PT VERBALIZES UNDERSTANDING OF DNR/DNI. PURPLE BRACELET PLACED ON R WRIST.
--- NOTE | 2023-04-25 17:45 | NUR ---
SHIFT SUMMARY PT CONTINUES TO RECEIVE D10 50ML/HR. HE IS ON BIPAP 14/85%. ATTEMPTED AIRVO THIS AM AND DID NOT TOLERATE WELL. HE SAT IN THE CHAIR FOR THE AFTERNOON. HE IS ALERT AND ORIENTED ALTHOUGH DROWSY. HE WAKENS EASILY TO VERBAL STIMULI AND PARTICIPATES IN CONVERSATION. BURKS PATENT AND DRAINING TO GRAVITY. MULTIPLE VISITORS THIS SHIFT. PT TRANSITIONED TO DNR/DNI TODAY.
--- NOTE | 2023-04-25 19:15 | NUR ---
ASSUMPTION OF CARE: RECEIVED REPORT FROM SEBASTIAN APARICIO. ALERT AND ORIENTED TO PERSON, PLACE AND SITUATION. CALM AND COOPERATIVE WITH CARE. BIPAP IN PLACE WITH SETTINGS AT 14/10/85%. SPO2 >92%. NO C/O SOB. CONTINUOUS CARDIAC MONITORING IN PLACE, SBP 116, HR SR 60'S. POWERGLIDE TO HERNANDO, CURRENTLY SALINE LOCKED. 20 GAUGE TO LEFT WRIST CURRENTLY INFUSING D10 AND TKO. BURKS IN PLACE DRAINING PALE YELLOW URINE TO GRAVITY. SIGNIFICANT OTHER AND SISTER AT THE BEDSIDE UPDATED TO PLAN OF CARE. SEE SHIFT ASSESSMENT FOR FULL ASSESSMENT.
[2023-04-26] VITALS (24 sets, daily range): BP systolic 82–167; BP diastolic 50–110
--- NOTE | 2023-04-26 05:43 | NUR ---
SHIFT SUMMARY: PT ALERT AND ORIENTED TO TIME, PERSON AND PLACE. REMAINS ON BIPAP T/O THE SHIFT SETTINGS 03/06/85%. SPO2 >92%. DENIES SOB. NPO WITH ORAL CARE DONE Q4 HOURS. LUNG SOUNDS COARSE IN THE UPPER LOBES, DIM IN THE BASES. CARDIAC MONITORING IN PLACE, SR/ST 60-100'S. SBP 160'S. DENIES CHEST PAIN OR PRESSURE. PT DEVELOPED FEVER THIS MORNING AT 102-103, MEDICATED PER MAR. BURKS REMAINS IN PLACE FOR CRITICAL I&O, PATENT AND DRAINING PALE YELLOW URINE TO GRAVITY. D10 INFUSING AT 50 ML/HR, BLOOD SUGARS Q4 HOURS WITH RANGE 90'S-130'S. NO FAMILY AT THE BEDSIDE T/O THE SHIFT.
--- NOTE | 2023-04-26 07:00 | NUR ---
ASSUMPTION OF CARE PT ON BIPAP 03/06/85%. HE WAKENS EASILY TO VERBAL STIMULI. HE IS ALERT AND ORIENTED. CORE TEMP 102.4. BURKS PATENT AND DRAINING TO GRAVITY. CALL LIGHT WITHIN REACH. SEE SHIFT ASSESSMENT.
--- NOTE | 2023-04-26 10:00 | NUR ---
UPDATE DURING CARE PT ROLLED ON R SIDE AND BEGAN COUGHING. PT ABLE TO EXPELL COPIOUS AMOUNTS OF THICK TANG/WARREN SECRETIONS. RT AT BEDSIDE AND ASSISTED WITH SUCTIONING WITH SUSANA. HE REMAINS ON BIPAP 03/06/85%. SPO2 90-93%. ENCOURAGED PT TO PRONE PER PREVENTIVE MAINTENANCE COORDINATOR RECOMMENDATION. PT TOLERATED FOR APPROXIMATELY 30MIN AND THEN STATED HE WANTED TO SIT IN CHAIR. PT ASSISTED TO CHAIR. SPO2 90-94% WHILE PRONED AND SITTING IN CHAIR. CALL LIGHT WITHIN REACH.
[2023-04-26 11:29] LABS: Hematocrit 39.2 % (37.0-53.0); Hemoglobin 13.2 g/dL (13.5-17.5); Mean Corpuscular HGB Conc 33.7 g/dL (31.5-36.5); Mean Corpuscular Volume 89 fL (80-100); Platelet Count 218 K/mm3 (150-400); RDW Coefficient Variation 13.2 % (11.7-14.2); RDW Standard Deviation 43.7 fL (35.1-46.3); White Blood Cell Count 15.07 K/mm3 (4.00-11.30)
[2023-04-26 11:53] LABS: Albumin, Blood 1.6 g/dL (3.4-5.0); Albumin/Globulin Ratio 0.5 (0.8-1.8); Bilirubin, Total 0.6 mg/dL (0.1-1.0); Bun/Creatinine Ratio 17.5 (12.0-20.0); Creatinine, Blood 0.8 mg/dL (0.60-1.20); Globulin, Blood 3.2 g/dL (2.2-4.0); Magnesium, Blood 2.1 mg/dL (1.6-2.4); Potassium, Blood 4.1 mmol/L (3.5-5.5); Total Protein, Blood 4.8 g/dL (6.4-8.2)
[2023-04-26 11:55] LABS: Vancomycin, Trough 11.1 ug/mL (5.0-10.0)
[2023-04-26 12:08] LABS: BAND PERCENT MAN 7 % (0-8); BASOPHILS PERCENT MAN 0 % (0-2); EOSINOPHILS PERCENT MAN 0 % (0-6); LYMPHOCYTES % ATYPICAL MANUAL 1 % (0-0); LYMPHOCYTES ABSOLUTE MAN 1.05 K/mm3 (0.84-5.20); LYMPHOCYTES PERCENT MAN 6 % (21-46); MONOCYTES PERCENT MAN 2 % (4-13); NEUTROPHILS ABSOLUTE MAN 13.71 K/mm3 (1.96-9.15); SEG NEUTROPHILS PERCENT MAN 84 % (41-73); TOTAL CELLS COUNTED 100
--- NOTE | 2023-04-26 15:34 | NUR ---
UPDATE PT REMAINS SITTING IN CHAIR. THIS AFTERNOON PT BECOMES MORE TACHYPNEIC WITH RATE IN 40S AND INCREASED WORK OF BREATHING. PT GIVEN OPTION TO RETURN TO BED IN PRONE POSITION OR STAY IN CHAIR. PT WOULD LIKE TO STAY IN CHAIR. SPO2 84-88%. FIO2 INCREASED TO 100%. SPO2 90-91%. PT REPORTS FEELING ANXIOUS. PRECEDEX RESTARTED AT 0.2MCG/KG/HR. SPO2 INCREASED TO 95%, RR IN 20S-30S.
--- NOTE | 2023-04-26 18:16 | NUR ---
SHIFT SUMMARY PT RECEIVING PRECEDEX 0.4MCG/KG/MIN. PT REMAINS ON BIPAP 03/06/95%. RR 20S-30S. SPO2 >92%. PT REPORTS DECREASED ANXIETY. LUNGS ARE CLEAR/DIMINISHED. SINUS RHYTHM ON MONITOR WITH RATE IN 60S. SBP 100S. HE HAS BEEN SITTING UP IN THE CHAIR FOR MOST OF THE AFTERNOON. HE HAD TWO INCONTINENT LIQUID/MUCOUS BM. BURKS PATENT AND DRAINING KARAN URINE TO GRAVITY. SPOUSE IN ROOM, UPDATED ON PT CONDITION. CALL LIGHT WITHIN REACH.
--- NOTE | 2023-04-26 19:15 | NUR ---
ASSUMPTION OF CARE: RECEIVED REPORT FROM SEBASTIAN APARICIO. PT UP IN THE CHAIR. ALERT AND ORIENTED TO PERSON, PLACE AND SITUATION. BACK TO BED WITH NURSE ASSIST. BIPAP WITH SETTINGS 03/06/85%. MAINTAINING SATS >88%. DENIES SOB. CONTINUOUS CARDIAC MONITORING IN PLACE, SINUS GALE RATE 50'S. SBP 90'S-100'S. DENIES CHEST PAIN OR PRESSURE. LUNG SOUNDS COARSE AND DIM. POWERGLIDE TO HERNANDO, INFUSING TKO AND D10. BLOOD SUGARS 140'S, Q4 HOURS. BURKS IN PLACE, PATENT AND DRAINING YELLOW URINE TO GRAVITY. LARGE INCONTINENT BM, BROWN AND MUCOUSY. TEMPERATURE AT 100.1, MEDICATED PER OCT. TEMP DECREASING. SEE SHIFT ASSESSMENT FOR FULL ASSESSMENT.
[2023-04-27] VITALS (10 sets, daily range): BP systolic 80–181; BP diastolic 55–147
--- NOTE | 2023-04-27 06:10 | NUR ---
SHIFT SUMMARY: ALERT AND ORIENTED TO PERSON, PLACE, SITUATION. REMAINS ON BIPAP T/O THE SHIFT SETTINGS 15/12/100%. SPO2 80'S. C/O SHORTNESS OF BREATH OCCASIONALLY T/O THE SHIFT. DESATS WITH MOVEMENT. RESP RATE IN THE 20'S-30'S. D10 INFUSING AT 50 ML/HR WITH BLOOD SUGARS MAINTAINING IN THE 120'S-130'S. CARDIAC MONITORING IN PLACE SINUS/SINUS TACH WITH HR 100'S, SBP 140'S. PRECEDEX TITRATED TO 0.7. DENIES CHEST PAIN/PRESSURE. BURKS IN PLACE FOR CRITICAL I&O, PATENT AND DRAINING YELLOW URINE TO GRAVITY. REPOSITIONING Q2 HOURS WITH NURSE ASSIST. POWERGLIDE IN PLACE IN HERNANDO, INFUSING, PATENT, CLEAN AND DRY. 20 GAUGE IN LEFT FOREARM, INFUSING. LARGE LOOSE STOOLS T/O THE SHIFT.
--- NOTE | 2023-04-27 06:59 | NUR ---
CALL TO DOC: CALL PLACED TO DR. CALDERON REGARDING PT DESATURATION, INCREASED HR AND BIPAP SETTING CHANGES INCLUDING FIO2 AT 100%. PT IS ANXIOUS, RR 40'S. ORDER RECEIVED FOR ATIVAN IV X1. ORDER PLACED.
--- NOTE | 2023-04-27 07:00 | NUR ---
ASSUMPTION OF CARE/TOD PT IS A&OX2. HE IS FEELING VERY ANXIOUS. HR CONSISTENTLY IN 130S, HYPERTENSIVE WITH DBP >100. HE REMAINS ON BIPAP 03/08/100%. SPO2 RANGING FROM 50S-70S. PRECEDEX INFUSING AT 0.7MCG/KG/HR. CALLED SIGNIFICANT OTHER, NOLBERTO, AND UPDATED ON PT CONDITION. DURING DISCUSSION WITH POWER PROJECT MANAGER, NOLBERTO AGREES TO TRANSITION TO COMFORT CARE. MEDS GIVEN PER EMAR. PT SWITCHED TO HI-FLOW FOR COMFORT. TOD [id number].
[2023-04-27 08:06] LABS: BASOPHILS ABSOLUTE AUTO 0.07 K/mm3 (0.00-0.23); BASOPHILS PERCENT AUTO 0 % (0-2); EOSINOPHILS ABSOLUTE AUTO 0.01 K/mm3 (0.00-0.68); EOSINOPHILS PERCENT AUTO 0 % (0-6); Hematocrit 42.1 % (37.0-53.0); IMMATURE GRAN ABSOLUTE AUTO 0.53 K/mm3 (0.00-0.10); IMMATURE GRAN PERCENT AUTO 2 % (0-1); LYMPHOCYTES PERCENT AUTO 1 % (21-46); MONOCYTES ABSOLUTE AUTO 0.42 K/mm3 (0.16-1.47); MONOCYTES PERCENT AUTO 2 % (4-13); Mean Corpuscular HGB 30.4 pg (26.0-34.0); Mean Corpuscular HGB Conc 33.3 g/dL (31.5-36.5); Mean Corpuscular Volume 92 fL (80-100); Mean Platelet Volume 10.4 fL (9.1-12.4); NEUTROPHILS ABSOLUTE AUTO 23.24 K/mm3 (1.96-9.15); NEUTROPHILS PERCENT AUTO 95 % (41-73); Platelet Count 244 K/mm3 (150-400); RDW Coefficient Variation 13.4 % (11.7-14.2); RDW Standard Deviation 45.5 fL (35.1-46.3); White Blood Cell Count 24.57 K/mm3 (4.00-11.30)
[2023-04-27 08:28] LABS: BAND PERCENT MAN 1 % (0-8); BASOPHILS PERCENT MAN 0 % (0-2); EOSINOPHILS PERCENT MAN 0 % (0-6); LYMPHOCYTES % ATYPICAL MANUAL 1 % (0-0); LYMPHOCYTES ABSOLUTE MAN 0.24 K/mm3 (0.84-5.20); MONOCYTES ABSOLUTE MAN 0.24 K/mm3 (0.16-1.47); MONOCYTES PERCENT MAN 1 % (4-13); NEUTROPHILS ABSOLUTE MAN 24.07 K/mm3 (1.96-9.15); SEG NEUTROPHILS PERCENT MAN 97 % (41-73); TOTAL CELLS COUNTED 100
[2023-04-27 08:30] LABS: Albumin, Blood 1.6 g/dL (3.4-5.0); Albumin/Globulin Ratio 0.4 (0.8-1.8); Bilirubin, Total 0.6 mg/dL (0.1-1.0); Bun/Creatinine Ratio 22.6 (12.0-20.0); Calcium, Blood 8.3 mg/dL (8.5-10.1); Creatinine, Blood 0.8 mg/dL (0.60-1.20); Globulin, Blood 3.6 g/dL (2.2-4.0); Potassium, Blood 4.5 mmol/L (3.5-5.5); Total Protein, Blood 5.2 g/dL (6.4-8.2)
--- NOTE | 2023-04-27 10:30 | NUR ---
Spiritual care visit conducted. I spent a great deal of time with patient's SO, Wilda, this morning providing grief supprt, conducting a life review of patient and supplying a calm presence. Both Wilda and her friend Wilda (who was present as well) showed signs of being comforted. I will continue to remain available as other family memebers arrive
--- NOTE | 2023-04-27 11:48 | NUR ---
HOME PT TO BE TRANSPORTED TO [facility] PER SIGNIFICANT OTHER. NO BELONGINGS WITH PT. SIGNIFICANT OTHER PREVIOUSLY TOOK BELONGINGS HOME.
== END 2023-04-27 08:32 | DRG 871 ==
LOC: ER 13:37 → PCU 16:22 → MEDS 16:22 → ICUE 16:22 → MEDS 18:10 → PCU 04-20 05:00 → ICUE 04-24 07:30
PROVIDERS: Emergency Medicine; Internal Medicine; Internal Medicine Critical Care Medicine; Student in an Organized Health Care Education/Training Program; ADMIT Internal Medicine
PROC: 3E0333Z Introduction of Anti-inflammatory into Peripheral Vein, Percutaneous Approach (ICD-10-PCS; 2023-04-18)
PROC: 8E0ZXY6 Isolation (ICD-10-PCS; 2023-04-18)
PROC: 0T9B70Z Drainage of Bladder with Drainage Device, Via Natural or Artificial Opening (ICD-10-PCS; 2023-04-18)
PROC: 3E03329 Introduction of Other Anti-infective into Peripheral Vein, Percutaneous Approach (ICD-10-PCS; 2023-04-18)
PROC: 5A09457 Assistance with Respiratory Ventilation, 24-96 Consecutive Hours, Continuous Positive Airway Pressure (ICD-10-PCS; principal; 2023-04-20)
PROC: 5A0945A Assistance with Respiratory Ventilation, 24-96 Consecutive Hours, High Flow/Velocity Cannula (ICD-10-PCS; 2023-04-20)
PROC: XW0DXM6 Introduction of Baricitinib into Mouth and Pharynx, External Approach, New Technology Group 6 (ICD-10-PCS; 2023-04-20)
PROC: 4A133R1 Monitoring of Arterial Saturation, Peripheral, Percutaneous Approach (ICD-10-PCS; 2023-04-24)
DX: A41.89 Other specified sepsis (principal); J12.82 Pneumonia due to coronavirus disease 2019; U07.1 COVID-19; J96.01 Acute respiratory failure with hypoxia; D84.9 Immunodeficiency, unspecified; M34.81 Systemic sclerosis with lung involvement; E87.1 Hypo-osmolality and hyponatremia; R65.20 Severe sepsis without septic shock; Z66 Do not resuscitate; Z51.5 Encounter for palliative care; F43.12 Post-traumatic stress disorder, chronic; K21.9 Gastro-esophageal reflux disease without esophagitis; H26.9 Unspecified cataract; I10 Essential (primary) hypertension; G47.30 Sleep apnea, unspecified; E16.2 Hypoglycemia, unspecified; I73.00 Raynaud's syndrome without gangrene; Z86.718 Personal history of other venous thrombosis and embolism; Z87.891 Personal history of nicotine dependence; Z79.891 Long term (current) use of opiate analgesic; Z79.899 Other long term (current) drug therapy; Z90.49 Acquired absence of other specified parts of digestive tract
CPT/HCPCS: 0241U; 36415; 36600; 71045; 71260; 80048; 80053; 80069; 80202; 81001; 82330; 82803; 82947; 83735; 83880; 84100; 85025; 85027; 85379; 87493; 94640; 94660; 94664; 94667; 94668; 94762; 96361; 96365; 96366; 97162; 97165; 97530; 99285-25; A9270; C9113; C9399; J0248; J0456; J0692; J0696; J1100; J1650; J1940; J1956; J2060; J2270; J3370; J7030; J7050; Q9967